=== PATIENT | female | born 2000 ===

== ENCOUNTER 2021-06-27 10:55 | Outpatient (CLI) | payer OTHER | END 2021-06-27 11:51 | disposition home or self-care (01) | LOC: PRENATAL 10:55 | PROVIDERS: ATTEND Obstetrics & Gynecology Maternal & Fetal Medicine | DX: Z34.01 Encounter for supervision of normal first pregnancy, first trimester (principal) ==

== ENCOUNTER 2021-07-21 09:32 | Outpatient (CLI) | payer OTHER | END 2021-07-21 10:45 | disposition home or self-care (01) | LOC: PRENATAL 09:32 | PROVIDERS: ATTEND Obstetrics & Gynecology Maternal & Fetal Medicine | DX: O35.0XX0 Maternal care for (suspected) central nervous system malformation in fetus, not applicable or unspecified (principal); Z3A.20 20 weeks gestation of pregnancy; O35.3XX0 Maternal care for (suspected) damage to fetus from viral disease in mother, not applicable or unspecified ==

== ENCOUNTER 2021-10-30 00:07 | Inpatient (IN) | payer OTHER ==
[~2021-10-30] VITALS: Ht 154.9 cm; Wt 70.3 kg
[2021-10-31] MEDS ORDERED: VALTREX1000 MG (08:18)
[2021-10-31] MEDS ORDERED: PRENATAL + DHA1 EAC1 (08:18)
== END 2021-11-04 13:01 | disposition home or self-care (01) | DRG 833 ==
LOC: OBS/DEL 00:07 → LDR 06:33 → OB/GYN 18:09
PROVIDERS: ADMIT Obstetrics & Gynecology; ATTEND Obstetrics & Gynecology
PROC: 4A1HXCZ Monitoring of Products of Conception, Cardiac Rate, External Approach (ICD-10-PCS; principal; 2021-10-30)
PROC: BY4FZZZ Ultrasonography of Third Trimester, Single Fetus (ICD-10-PCS; 2021-10-31)
PROC: BU4CZZZ Ultrasonography of Uterus and Ovaries (ICD-10-PCS; 2021-10-31)
DX: O60.03 Preterm labor without delivery, third trimester (principal); O26.843 Uterine size-date discrepancy, third trimester; O36.8130 Decreased fetal movements, third trimester, not applicable or unspecified; O99.013 Anemia complicating pregnancy, third trimester; D64.89 Other specified anemias; Z20.822 Contact with and (suspected) exposure to COVID-19; Z3A.36 36 weeks gestation of pregnancy

== ENCOUNTER 2021-11-25 00:48 | Inpatient (IN) | payer OTHER ==
[~2021-11-25] VITALS: Ht 157.5 cm; Wt 72.6 kg
[~2021-11-25 00:48] MED LIST: PRENATAL + DHA1 EAC1; VALTREX1000 MG
[2021-11-25] MEDS ORDERED: IRON325 MG PO (01:47)
[2021-11-28] MEDS ORDERED: Tylenol #3 PO (08:56)
[2021-11-28] MEDS ORDERED: NAPR500T14 PO (08:56)
== END 2021-11-28 13:19 | disposition home or self-care (01) | DRG 788 ==
LOC: OBS/DEL 00:48 → LDR 08:44 → OB/GYN 08:44
PROVIDERS: ADMIT Obstetrics & Gynecology; ATTEND Obstetrics & Gynecology
PROC: 4A1HXCZ Monitoring of Products of Conception, Cardiac Rate, External Approach (ICD-10-PCS; 2021-11-25)
PROC: 10D00Z1 Extraction of Products of Conception, Low, Open Approach (ICD-10-PCS; principal; 2021-11-25 12:00)
DX: O62.1 Secondary uterine inertia (principal); O36.8930 Maternal care for other specified fetal problems, third trimester, not applicable or unspecified; O69.2XX0 Labor and delivery complicated by other cord entanglement, with compression, not applicable or unspecified; Z3A.38 38 weeks gestation of pregnancy; Z37.0 Single live birth; Z20.822 Contact with and (suspected) exposure to COVID-19